=== PATIENT | female | born 1960 | race Hispanic/Latino ===

== ENCOUNTER 2021-05-30 11:22 | Emergency (ER) | payer SELFPAY ==
[2021-05-30 11:28] VITALS: BP 146/82
[2021-05-30] MEDS ORDERED: IBUPROFEN 800 MG TAB PO ONE (11:38)
[2021-05-30] MEDS ORDERED: ACETAMINOPHEN 500 MG TAB PO STA ×2 (11:39→13:03)
--- NOTE | 2021-05-30 11:40 | Emergency Department Report ---
ED General Adult HPI - General Chief complaint: Head Injury Stated complaint: TRAUMA Time Seen by Provider: 05/30/21 11:33 Source: patient Mode of arrival: Ambulatory Limitations: No Limitations - History of Present Illness Initial comments: 60-year-old female patient with history hypertension presents with complaints of head injury today. Patient states a large heavy object fell on her head while getting out of her truck today. She denies any loss of consciousness, however states she felt dazed for a few seconds. She also denies any nausea/vomiting, numbness/tingling/weakness in her limbs, confusion, memory loss, difficulty with speech/ambulation, or blood thinner use. She admits to very minimal blurry vision. Patient states the pain radiates into her neck. No difficulty moving her neck per patient. She has not tried any medications for her symptoms. NKDA per patient. Severity scale (0 -10): 8 - Related Data Previous Rx's Medication Instructions Recorded Last Taken Type Naproxen [Naprosyn TAB] 500 mg PO BID PRN #20 tablet 05/30/21 Unknown Rx methocarbamoL [Methocarbamol] 750 - 1,500 mg PO TID PRN #24 05/30/21 Unknown Rx Allergies Allergy/AdvReac Type Severity Reaction Status Date / Time No Known Allergies Allergy Verified 05/30/21 13:28 ED Review of Systems ROS: Stated complaint: TRAUMA Other details as noted in HPI Constitutional: denies: chills, fever, malaise Respiratory: denies: cough, shortness of breath Cardiovascular: denies: chest pain Neurological: headache (Rates headache as a 6/10 in severity). denies: numbness, paresthesias, abnormal gait, vertigo ED Past Medical Hx - Medications Home Medications: Home Medications Medication Instructions Recorded Confirmed Last Taken Type Naproxen [Naprosyn TAB] 500 mg PO BID PRN #20 tablet 05/30/21 Unknown Rx methocarbamoL [Methocarbamol] 750 - 1,500 mg PO TID PRN #24 05/30/21 Unknown Rx ED Physical Exam - General Limitations: No Limitations General appearance: alert, in no apparent distress, obese - Head Head exam: Present: atraumatic, normocephalic, other (Mild tenderness to touch at the upper occipital region of the skull) - Eye Eye exam: Present: normal appearance - Neck Neck exam: Present: tenderness (Bilateral trapezius muscle tenderness to palpation noted and mild vertebral tenderness to palpation noted without obvious deformities or step-offs), full ROM - Respiratory Respiratory exam: Absent: respiratory distress - Cardiovascular Cardiovascular Exam: Present: regular rate - Extremities Exam Extremities exam: Present: normal inspection, full ROM - Back Exam Back exam: Present: full ROM, vertebral tenderness (Mild tenderness to palpation noted to the upper thoracic spine without obvious deformities or step-offs) - Neurological Exam Neurological exam: Present: alert, oriented X3, CN II-XII intact, normal gait. Absent: motor sensory deficit - Expanded Neurological Exam Expanded Cerebellar function: Finger to Nose: Normal, Heel to [place]: Normal, Romberg: Normal Sensory exam: Upper Extremity Light Touch: Normal, Lower Extremity Light Touch: Normal Motor strength exam: RUE: 4, LUE: 4, RLE: 4, LLE: 4 Best Eye Response ([place]): (4) open spontaneously Best Motor Response ([place]): (6) obeys commands Best Verbal Response ([place]): (5) oriented [place] Total: 15 - Psychiatric Psychiatric exam: Present: normal affect, normal mood - Skin Skin exam: Present: warm, dry, intact, normal color. Absent: rash ED Course Vital Signs 05/30/21 11:27 Temperature 98.6 F Pulse Rate 73 Respiratory 16 Rate Blood Pressure 146/82 [Right] O2 Sat by Pulse 95 Oximetry ED Medical Decision Making - Radiology Data Radiology results: report reviewed Thoracic spine, 2 views HISTORY: Pain after injury COMPARISON: None FINDINGS: Mild right convex curvature of the thoracic spine. Posterior vertebral body alignment is preserved. Vertebral body heights are intact. There is no evidence of fracture. Mild multilevel thoracic spondylosis. Soft tissues are unremarkable. Visualized lungs are clear. IMPRESSION: No acute process. CT HEAD WITHOUT CONTRAST INDICATION / CLINICAL INFORMATION: pain after head injury. TECHNIQUE: Axial imaging performed from the skull apex through the skull base without the use of contrast. Sagittal and coronal reformatted images. All CT scans at this location are performed using CT dose reduction for ALARA by means of automated exposure control. COMPARISON: None available. FINDINGS: CEREBRAL PARENCHYMA: No significant abnormality. No acute territorial infarct. HEMORRHAGE: None. EXTRA-AXIAL SPACES: Normal in size and morphology for the patient's age. VENTRICULAR SYSTEM: Normal in size and morphology for the patient's age. MIDLINE SHIFT OR HERNIATION: None. CEREBELLUM / BRAINSTEM: No significant abnormality. CALVARIUM: No significant abnormality. ORBITS: Normal as visualized. PARANASAL SINUSES / MASTOID AIR CELLS: Minimal to mild mucosal thickening is identified throughout the paranasal sinuses. Previous endoscopic sinus surgery changes are suspected. SOFT TISSUES of HEAD: No significant abnormality. ADDITIONAL FINDINGS: None. IMPRESSION: No acute intracranial abnormality. CT CERVICAL SPINE WITHOUT CONTRAST INDICATION: pain after head injury. TECHNIQUE: Axial imaging performed through the cervical spine without the use of contrast. Sagittal and coronal reconstructed images were also reviewed. All CT scans at this location are performed using CT dose reduction for ALARA by means of automated exposure c ontrol. COMPARISON: None FINDINGS: Alignment: There is reversal of the normal cervical lordosis. No subluxation. Bones: There is no acute osseous abnormality. Moderate to severe discogenic DJD is identified at C4-5, C5-6 and C6-7. The remaining disc levels are unremarkable. No significant facet arthropathy is appreciated. Soft tissues: No acute or significant incidental soft tissue abnormality. IMPRESSION: No acute cervical injury is appreciated. Reversal of the normal cervical lordosis. Moderate to severe degenerative changes from C4-5 through C6-7. - Medical Decision Making 60-year-old female patient with history hypertension presents with complaints of head injury today. Patient states a large heavy object fell on her head while getting out of her truck today. She denies any loss of consciousness, however states she felt dazed for a few seconds. She also denies any nausea/vomiting, numbness/tingling/weakness in her limbs, confusion, memory loss, difficulty with speech/ambulation, or blood thinner use. She admits to very minimal blurry vision. Patient states the pain radiates into her neck. No difficulty moving her neck per patient. She has not tried any medications for her symptoms. NKDA per patient. No acute abnormalities noted on imaging. Patient states pain significantly impr mabel with meds given. She has full range of motion of the cervical spine. Discussed possible small concussion and importance of brain rest over the next few days. Also discussed signs and symptoms that should prompt immediate return to the ED with patient, she verbalizes understanding. Patient to follow-up with primary care within 3 to 5 days Critical care attestation.: If time is entered above; I have spent that time in minutes in the direct care of this critically ill patient, excluding procedure time. ED Disposition Clinical Impression: Head injury, Neck injury Disposition: HOME / SELF CARE / HOMELESS Is pt being admited?: No Condition: Stable Instructions: Head Injury, Adult, Cervical Sprain Prescriptions: methocarbamoL [Methocarbamol] 750 - 1,500 mg PO TID PRN #24 PRN Reason: muscle spasm/tightness Naproxen [Naprosyn TAB] 500 mg PO BID PRN #20 tablet PRN Reason: pain Referrals: PRIMARY CARE, [Primary Care Provider] - 3-5 Days [facility] [Provider Group] - 3-5 Days Forms: Work/School Release Form(ED)
--- NOTE | 2021-05-30 12:48 | XRay Report ---
Thoracic spine, 2 views HISTORY: Pain after injury COMPARISON: None FINDINGS: Mild right convex curvature of the thoracic spine. Posterior vertebral body alignment is pr eserved. Vertebral body heights are intact. There is no evidence of fracture. Mild multilevel thoraci c spondylosis. Soft tissues are unremarkable. Visualized lungs are clear. IMPRESSION: No acute process. Signer Name: Spike Muro MD Signed: 05/30/2021 12:44 PM Workstation Name: [id number]
[2021-05-30] MEDS ORDERED: IBUPROFEN 800 MG TAB PO STA (13:03)
--- NOTE | 2021-05-30 14:00 | Cat Scan Report ---
CT HEAD WITHOUT CONTRAST INDICATION / CLINICAL INFORMATION: pain after head injury. TECHNIQUE: Axial imaging performed from the skull apex through the skull base without the use of cont rast. Sagittal and coronal reformatted images. All CT scans at this location are performed using CT dose reduction for ALARA by means of automated exposure control. COMPARISON: None available. FINDINGS: CEREBRAL PARENCHYMA: No significant abnormality. No acute territorial infarct. HEMORRHAGE: None. EXTRA-AXIAL SPACES: Normal in size and morphology for the patient's age. VENTRICULAR SYSTEM: Normal in size and morphology for the patient's age. MIDLINE SHIFT OR HERNIATION: None. CEREBELLUM / BRAINSTEM: No significant abnormality. CALVARIUM: No significant abnormality. ORBITS: Normal as visualized. PARANASAL SINUSES / MASTOID AIR CELLS: Minimal to mild mucosal thickening is identified throughout th e paranasal sinuses. Previous endoscopic sinus surgery changes are suspected. SOFT TISSUES of HEAD: No significant abnormality. ADDITIONAL FINDINGS: None. IMPRESSION: No acute intracranial abnormality. CT CERVICAL SPINE WITHOUT CONTRAST INDICATION: pain after head injury. TECHNIQUE: Axial imaging performed through the cervical spine without the use of contrast. Sagittal and coronal reconstructed images were also reviewed. All CT scans at this location are performed us ing CT dose reduction for ALARA by means of automated exposure control. COMPARISON: None FINDINGS: Alignment: There is reversal of the normal cervical lordosis. No subluxation. Bones: There is no acute osseous abnormality. Moderate to severe discogenic DJD is identified at C4 -5, C5-6 and C6-7. The remaining disc levels are unremarkable. No significant facet arthropathy is ap preciated. Soft tissues: No acute or significant incidental soft tissue abnormality. IMPRESSION: No acute cervical injury is appreciated. Reversal of the normal cervical lordosis. Moderate to severe degenerative changes from C4-5 through C6-7. Signer Name: Florentino Grider Jr, MD Signed: 05/30/2021 1:56 PM Workstation Name: [id number]
== END 2021-05-30 14:50 | disposition home or self-care (01) ==
LOC: ED 11:22
DX: S09.90XA Unspecified injury of head, initial encounter (principal); S19.9XXA Unspecified injury of neck, initial encounter; W20.8XXA Other cause of strike by thrown, projected or falling object, initial encounter; Y93.89 Activity, other specified; Y92.89 Other specified places as the place of occurrence of the external cause; Y99.8 Other external cause status
CPT/HCPCS: 70450; 72070; 72125; 99284